=== PATIENT | female | born 1995 | race African-American/Black ===

== ENCOUNTER → 2017-05-12 15:00 | Observation (INO) ==
--- NOTE | 2017-05-12 11:48 | OB/GYN History & Physical ---
Date of Encounter: 05/12/17 Time of Encounter: 11:25 Assessment and Plan (1) 39 weeks gestation of Current visit: Yes Status: Acute (2) Decreased movement Current visit: Yes Status: Acute Patient had a BPP of 6/8 with decreased gross movement of the fetus earlier today in clinic. Patient reports good movement. tracing baseline 125/moderate variability/+accels, -decels. discussed with Dr. Werner. Discharge to home with labor and when to return to triage precautions. F/U appointment arranged for PN and NST on Tuesday at 0900. Qualifiers: Fetus number: single or unspecified fetus Trimester: third trimester Qualified Code(s): O36.8130 - Decreased movements, third trimester, not applicable or unspecified (3) Large for gestational age fetus affecting mother, antepartum, third trimester, single gestation Current visit: Yes Status: Acute Discussed with patient US showing LGA fetus >90 percentile. Discussed risks of post term gestation with gestational diabetes and risks of shoulder dystocia and injury at delivery. Pt states understanding, but still wants to continue and natural onset of labor. (4) Gestational diabetes mellitus (GDM) affecting first Current visit: Yes Status: Acute Blood sugar log reviewed. History of Present Illness Chief complaint: Decreased gross movement of u/s HPI: Ms. Richmond is a 22 year old female at 39 6/7 weeks gestation that presents for decreased gross movement of fetus seen on u/s earlier today in clinic.She states baby was moving adequately prior to appointment, but not during appointment. Her BPP was 6/8. She denies vaginal fluid leakage or bleeding. She denies contractions, headaches, vision changes, chest pain, fever, chills, nausea, vomiting, dysuria, or diarrhea. GBS: negative HepBSAb: non-reactive (11/05/16) HIV Ag/Ab: non-reactive T. Pallidum: negative Rubella Ab: positive Varicella Ab: positive Blood Type: A+ All other labs normal. Past Med Surg Social Fam HX - Past Medical History Psychiatric history: no psych history - Past Surgical History Surgical History: no surgical history - Social History Smoking Status: Former smoker Smokeless Tobacco Status: No Alcohol use: none Drug use: marijuana - Family History Mother Name: Caitlyn Living Status: Still Living Hx Family Cardiac Disorders: No Hx Family Respiratory Disorders: No Hx Family Cancer: No Hx Family GI Disorders: No Hx Family Genitourinary Disorders: No Hx Family Endocrine Disorder: No Hx Family Musculoskeletal Disorders: No Hx Family Neuromuscular Disorders: No Hx Family Neurologic Disorders: No Hx Family HEENT Disorders: No Hx Family Autoimmune Disorders: No Hx Family Reproductive Disorders: No Hx Family Psychosocial Disorders: Yes (mood disrorders) Hx Family Medical Disorders: No Obstetrical History - Pregnancies : 1 Para: 0 Term: 0 : 0 Ab's: 0 Livin Medications and Allergies Formula Tablet 05/12/17 [History] 3 Allergy/AdvReac Type Severity Reaction Status Date / Time penicillin V Allergy Itching Verified 05/12/17 11:23 Exam - Vital Signs Vital signs: BP: 131/83 HR: 81 FHR: 129 Amesti: 11 - Constitutional Constitutional: well developed, well nourished, no acute distress, average body habitus - Neck Neck exam: full ROM - Lungs Respiratory exam: CTAB - Cardiovascular Cardiovascular exam: RRR, +S1, +S2 - Abdomen Abdomen: Present: bowel sounds normal, gravid, non tender - Extremities Extremities exam: full ROM, normal inspection, radial pulses palpable and symmetrical Deep Tendon Reflex Grade: 2+ Normal - Vagina Vagina: Present: normal moisture - Cervix Dilation: 4 Effacement: 80 Station: -2 - Uterus Uterus exam: Present: normal size, normal contour Results All other labs normal. - VTE Reasons for not Prescribing Prophylaxis: Treatment not Indicated - Low risk for VTE
[2017-05-12 14:02] LABS: Amphetamine Screen,Urine Negative ng/mL (Cutoff=1000); Barbiturate Screen,Urine Negative ng/mL (Cutoff=200); Benzodiazepines Screen,Urine Negative ng/mL (Cutoff=200); Cannabinoid Screen,Urine Negative ng/mL (Cutoff = 50); Cocaine Screen,Urine Negative ng/mL (Cutoff= 300); Opiate Screen,Urine Negative ng/mL (Cutoff=300); Phencyclidine Screen,Urine Negative ng/mL (Cutoff=25)
== END | disposition home or self-care (01) ==
LOC: 1NENULAB
PROVIDERS: ADMIT Obstetrics & Gynecology; ATTEND Obstetrics & Gynecology

== ENCOUNTER 2017-05-13 18:48 | Inpatient (IN) ==
--- NOTE | 2017-05-13 16:47 | OB/GYN History & Physical ---
Date of Encounter: 05/13/17 Time of Encounter: 16:45 Assessment and Plan (1) 40 weeks gestation of Current visit: Yes Status: Acute Admit for labor evaluation (2) Gestational diabetes mellitus (GDM) affecting first Current visit: Yes Status: Acute Diet-controlled. Check blood sugars fasting and 2 hr postprandial. (3) Non-stress test reactive Current visit: Yes Status: Acute FHR 135 bpm, moderate variability, +15x15 aceels. History of Present Illness Chief complaint: Possible SROM HPI: Ms. Richmond is a 22 year old female at 40w0d who arrives with complaints of possible SROM. Patient states she felt a "pop" and leaked fluid. She states she lost her mucous plug while sitting on the toilet afterward. Pt reports positive movement, denies bleeding, reports irregular cramping. Nitrazine negative , pt states she is no longer feeling fluid leakage. A positive GBS negative Rubella Immune Varicella Immune HbSAG negative T. Pallidum negative Past Med Surg Social Fam HX - Past Medical History Source: patient Medical history: diabetes (Gestational, diet-controlled) Psychiatric history: no psych history - Past Surgical History Surgical History: no surgical history - Social History Smoking Status: Former smoker Smokeless Tobacco Status: No Alcohol use: none Drug use: marijuana Current living situation: Home - Independent Activity Level: Independent ambulation Recent Out of Country Travel Within the Last 8 Weeks: No Exposure or Possible Exposure to Illness During Travel: No - Family History Mother Living Status: Still Living Hx Family Cardiac Disorders: No Hx Family Respiratory Disorders: No Hx Family Cancer: No Hx Family GI Disorders: No Hx Family Endocrine Disorder: No Hx Family Neuromuscular Disorders: No Hx Family Neurologic Disorders: No Hx Family HEENT Disorders: No Hx Family Autoimmune Disorders: No Obstetrical History - Pregnancies : 1 Para: 0 Term: 0 : 0 Ab's: 0 Livin Medications and Allergies Formula Tablet 05/12/17 [History] 3 Allergy/AdvReac Type Severity Reaction Status Date / Time penicillin V Allergy Itching Verified 05/12/17 11:23 Review of System OB All systems PM: reviewed and no additional remarkable complaints except as stated - Constitutional Constitutional ROS IM: as per HPI - Nose, mouth, and throat Nose, mouth and throat: as per HPI - Breasts Breasts: as per HPI - Cardiovascular Cardiovascular: as per HPI - Respiratory Respiratory: as per HPI - Gastrointestinal Gastrointestinal: as per HPI - Genitourinary Genitourinary: as per HPI - Menstruation Menstruation: as per HPI - Muscloskeletal Musculoskeletal: as per HPI - Integumentary Integumentary: as per HPI - Neurological Nerological: as per HPI Exam - Constitutional Constitutional: well developed, well nourished, no acute distress - Neck Neck exam: full ROM, normal inspection - Lungs Respiratory exam: CTAB - Cardiovascular Cardiovascular exam: RRR, +S1, +S2 - Abdomen Abdomen: Present: bowel sounds normal, gravid, non tender - Extremities Extremities exam: full ROM, normal capillary refill, normal inspection - Cervix Dilation: 4 (per RN) Effacement: 80 Station: -1 - Uterus Uterus exam: Present: normal size - Comments Comments: FHR 135 bpm, moderate variability, + 15x15 accels. Non-recurrent late decelerations. Position change resolved these. Irregular contractions. Results All other labs normal. - VTE Reasons for not Prescribing Prophylaxis: Treatment not Indicated - Low risk for VTE
[2017-05-13 18:23] LABS: Basophils % 0.3 %; Eosinophils % 0.4 %; Hematocrit 38.9 % (35.3-44.9); Hemoglobin 12.4 g/dL (11.5-15.4); Immature Granulocytes % 0.6 % (0-4); Lymphocytes # 1.8 K/mcL (0.6-4.6); Lymphocytes % 25.1 %; Mean Corpuscular HGB Conc 31.9 g/dL (31.6-35.5); Mean Corpuscular Hemoglobin 24.1 pg (28.0-33.3); Mean Corpuscular Volume 75.5 fL (83.0-100.0); Mean Platelet Volume 9.7 fL (9.4-12.4); Monocytes # 0.5 K/mcL (0.0-1.3); Monocytes % 7.3 %; Neutrophils # 4.6 K/mcL (1.6-8.9); Platelet Count 222 K/mcL (140-400); Red Blood Count 5.15 M/mcL (3.82-4.97); Red Cell Distribution Width 15.1 % (11.5-14.5); Segmented Neutrophils % 66.3 %
[~2017-05-13 18:48] MED LIST: Famotidine 20 MG/2 ML VIAL IVP PRN; Naloxone 0.4 MG/ML INJ IVP PRN; Ondansetron 4 MG/2 ML VIAL IVP PRN; Ringers Solution, Lactated 1,000 ML IVC SCH
--- NOTE | 2017-05-13 20:11 | OB Labor Progress Note ---
Date of Encounter: 05/13/17 Time of Encounter: 20:03 Labor Progress Note - Subjective Subjective: Pt working well with contractions. Pt aware she can have Nubain or epidural if she requests it. Family members at bedside for support. - Cervix Cervix: 4-5/80/-1 - Heart Tones Heart Tones: 135 bpm moderate variability, + 15x15 accels, no decels. Category I tracing. - [place]: every 3 min - Interventions Interventions: SVE, planned to AROM, no membranes felt, hair palpated. Suspect SROM at 1300 by patient report. - Plan Plan: Continue labor management. Recheck in approximately 1 hour. Will re-evaluate plan of care at that time. Pt prefers natural labor.
[2017-05-13] MEDS ORDERED: miSOPROStol 100 MCG TABLET PO STA (21:40)
--- NOTE | 2017-05-13 21:46 | OB Labor Progress Note ---
Date of Encounter: 05/13/17 Time of Encounter: 21:43 Labor Progress Note - Subjective Subjective: Pt coping well with contractions, breathing with them. Significant other at side for labor support. - Cervix Cervix: 5/80/-1 - Heart Tones Heart Tones: FHR 130 bpm, moderate variability, + 15x15 accels, variable deceleration x 1. - [place]: q 3 minutes - Interventions Interventions: SVE, no significant change noted - Plan Plan: Discussed augmentation with Cytotec and patient is agreeable. Will give Cytotec 50 mcg po. Continue labor management
[2017-05-13] MEDS ORDERED: Epidural Premix (fent/bupiv) 110 ML EP SCH (23:45)
[2017-05-13] MEDS ORDERED: *HR* Ropivacaine/PF 0.2% 10 ML AMPUL EP ONE (23:47)
[2017-05-13] MEDS ORDERED: EPHEDrine 50 MG/ML VIAL IVP PRN (23:47)
[2017-05-13] MEDS ORDERED: Ringers Solution, Lactated 500 ML IVC ONE (23:47)
[2017-05-14] MEDS ORDERED: Epidural Premix (fent/bupiv) 110 ML EP ONE
--- NOTE | 2017-05-14 | Anesthesia Evaluation PreOp ---
Date of Encounter: 05/13/17 Time of Encounter: 23:55 - Past History Planned Operation: JOSHUA Cardiac History: Denies any Significant Hx Pulmonary History: Denies Any Significant HX, Former smoker MOUNTER CLARINETS History: Denies Any Significant HX Other Medical History: Denies Any Significant HX : Yes Alcohol Use: none Drug use: marijuana Medications and Allergies Formula Tablet 05/12/17 [History] 3 Allergy/AdvReac Type Severity Reaction Status Date / Time penicillin V Allergy Itching Verified 05/12/17 11:23 - Meds/Allergy Pre-op Review Medications Reviewed: Yes Allergies Reviewed: Yes Beta Blockers on Current Med List: No Anesthesia Results - Labs 05/13/17 18:10 Anesthesia Exam Height: 1.83m Weight: 115.6kg NPO (# of Hours): >6hr Pain Scale: 8 Pain Scale Used: Numeric (1 - 10) - HEENT Pupil (Motor): Pupils equal Mallampati: II Teeth: Normal Oral Opening: Greater than 3 - MOUNTER CLARINETS LOC: Oriented [place] Motor: Normal RUE, Normal LUE, Normal RLE, Normal LLE, Normal Face [place] Sensory: Normal: RUE, LUE, RLE, LLE, Face - Cardiac Rhythm: Regular Murmur: None JVD: No Carotid Bruit: No - Pulmonary Breath Sounds: bilateral Clear Respiratory Effort: Symmetrical Anesthesia Assess/Plan ASA Score: 2 Modified Cromwell Scale for Level of Consciousness: Cooperative, oriented, and tranquil Anesthetic Plan: Regional Autologous Blood: Yes Monitoring Plan: Standard Monitors Recovery Plan: Other
--- NOTE | 2017-05-14 01:12 | Anesthesia Procedures ---
Date of Encounter: 05/14/17 Time of Encounter: 00:03 Procedures: Anesthesia - Epidural/Spinal Patient ID/Chart reviewed: Yes Patient examined: Yes OB Eval: Gestational age: 40 OB Eval: : 1 OB Eval: Hx Para: 0 OB Eval: Dilated at (cm): 6 OB Eval: Contractions: Non-stressed pattern Consent Obtained: Yes Supplemental Oxygen: None/Room Air Site Prep: Aseptic Technique, Sterile prep and drape, 0.5% Chlorhexidine/Alcohol Patient position: upright Local Anesthetic: Lidocaine 1% Amount of Local Anesthetic used: 6 Touhy Needle Gauge: 18 Touhy Needle Depth (cm): 9 Catheter Depth at Skin (cm): 15 Test Dose (1.5% Lido + Epi): Volume given (mls): 5 Test Dose Result: Negative Loading Dose: Other: Ropivacaine 0.5% 10mL Loading Dose Administered: Thru Catheter Infusion Med: 0.125% Bupivacaine w/ 2 mcg/ml Fentanyl Infusion Rate (mls/hr): 18 (bolus 4mL q20min) Catheter Secured in Place: Tegaderm Interspace Used: L2-L3 Loss of Resistance (JORDY): Yes Blood: No CSF: No Paresthesia: No Procedure: Catheter placed at L3-4 after JORDY @9cm. Negative test dose and catheter passed easily. Patient reported no change in comfort level after bolus. Monitored for 20 minutes and still no change in comfort level. Catheter removed at 0046 and Catheter placed at L2-3 as charted. Patient with increased comfort level within 2 contractions of bolus with new catheter. Will continue monitoring. Patient tolerated procedure well. Vitals + FHT's: VSS and FHR stable throughout. See nursing documentation.
[2017-05-14] MEDS ORDERED: EPHEDrine 50 MG/ML VIAL ONE (01:14)
[2017-05-14] MEDS ORDERED: Oxytocin 20 units/ LR 1000 mL 20 UNIT/1,000 ML BAG IVC ONE ×2 (03:49→08:38)
--- NOTE | 2017-05-14 07:18 | OB/GYN Procedure Note ---
Delivery - Delivery Date: 05/14/17 Provider: Kerry Ralph ([facility]) Intrapartum events: none Delivery induction: none Delivery monitor: external FHT, external uterine Anesthesia: epidural Estimated Blood Loss: 450 - Infant (s) A Infant Delivery Date: 05/14/17 Delivery Time: 06:44 Presentation: vertex Position: OA Route of delivery: Gender: Female Viability: Viable Pounds: 8 Ounces: 9 Weight Gram: 3870 kg at 1 minute: 8 at 5 mins: 9 Shoulder Dystocia: not encountered Placenta: spontaneous Cord: nuchal cord, nuchal reduced - Repair Episiotomy: none Laceration Description: Vaginal (Right side vaginal wall lac, repaired with 3-0 Vicryl) - Complications Delivery complications: uterine atony (Methergine given IM) Delivery comments: Under maternal effort, spontaneous delivery of viable female 3870 gm infant over right vaginal wall laceration, repaired with 3-0 Vicryl. Nuchal cord x 1, easily reduced. [place] to maternal abdomen, cord clamped and cut after pulsation ceased. Spontaneous delivery of intact placenta. Uterine atony noted after placenta delivered, IV Pitocin running wide open and uterine massage performed with continued atony. Methergine IM ordered and given. After several minutes, uterus firm and bleeding moderate. No shoulder dystocia or meconium encountered. EBL 450 mL. All counts complete and correct. Mother and infant stable for 2 hour recovery. - Disposition Mom disposition: stable in LDR [place] disposition: stable in LDR
[2017-05-14] MEDS ORDERED: Oxytocin 20 units/ LR 1000 mL 20 UNIT/1,000 ML BAG IVC SCH (09:53)
[2017-05-14] MEDS ORDERED: Lanolin 7 G OINT...G. TP PRN (09:53)
[2017-05-14] MEDS ORDERED: Prenatal Vit/FA 1 EACH TABLET PO SCH (09:53)
[2017-05-14] MEDS ORDERED: Measles/Mumps/Rubella Vacc 0.5 ML VIAL SQ PRN (09:53)
[2017-05-14] MEDS ORDERED: Acetaminophen 325 MG TABLET PO PRN (09:53)
[2017-05-14] MEDS ORDERED: Benzocaine/Menthol 56 GM AEROSOL SPRAY TP PRN (09:53)
[2017-05-14] MEDS ORDERED: *HR* HYDROcodone/Acet 5/325 mg TABLET PO PRN (09:53)
[2017-05-14] MEDS: Ibuprofen 600 MG TABLET PO PRN ×2 (10:04→20:05)
[2017-05-15] MEDS: Ibuprofen 600 MG TABLET PO PRN (03:06)
--- NOTE | 2017-05-15 07:17 | Discharge Summary ---
Date of Encounter: 05/15/17 Time of Encounter: 07:14 - Discharge Diagnosis (1) Vaginal delivery Priority: Primary Status: Acute Comments: S/P vaginal delivery day 1 Pain is well controlled Lochia is light and without clots VSS - mild blood pressure elevation yesterday - asymptomatic Voiding without difficulty Discharge home today (2) Mother currently breast-feeding Priority: Primary Status: Acute Comments: mother Having mild difficulty with latch; encouraged to have see patient prior to discharge Discharge home with breast pump - Discharge Medications Prescriptions: Ibuprofen [Motrin] 600 mg PO Q6HR PRN #60 tablet PRN Reason: Cramping Breast Pump [BREAST PUMP] 1 each .ROUTE AD #1 each Ferrous Sulfate 325 mg PO DAILY #30 tablet Home Medications: Formula Tablet 05/12/17 [History] Acetaminophen [Tylenol] 650 mg PO Q6HR PRN tablet 05/15/17 [Rx] Benzocaine/Menthol [place] [Dermoplast [place]] 1 appl TP QID PRN aerosol 05/15/17 [Rx] Breast Pump [BREAST PUMP] 1 each .ROUTE AD #1 each 05/15/17 [Rx] Docusate [Colace] 100 mg PO BID capsule 05/15/17 [Rx] Ferrous Sulfate 325 mg PO DAILY #30 tablet 05/15/17 [Rx] Ibuprofen [Motrin] 600 mg PO Q6HR PRN #60 tablet 05/15/17 [Rx] Lanolin [Lansinoh] 1 appl TP TID PRN oint...g. 05/15/17 [Rx] Allergies/Adverse Reactions: 3 Allergy/AdvReac Type Severity Reaction Status Date / Time penicillin V Allergy Itching Verified 05/12/17 11:23 Data Procedures and tests throughout hospitalization: Laboratory Tests 05/13/17 18:10 WBC 7.0 RBC 5.15 H Hgb 12.4 Hct 38.9 MCV 75.5 L MCH 24.1 L MCHC 31.9 RDW 15.1 H Plt Count 222 MPV 9.7 Immature Gran % 0.6 Seg Neutrophils % 66.3 Lymphocytes % 25.1 Monocytes % 7.3 Eosinophils % 0.4 Basophils % 0.3 Neutrophils # 4.6 Lymphocytes # 1.8 Monocytes # 0.5 Eosinophils # 0.0 Basophils # 0.0 Date of admission: 05/13/17 18:48 Primary care physician: PCP NONE Consults: 05/14/17 09:53 Consult to Senior Communications Engineer [CONS] Routine Comment: Vaginal delivery, consult needed Discharging clinician: Eugenie Tapia Anticipated date of discharge: 05/15/17 - Patient Status Disposition: Home, Self-Care Condition: Good Functional capacity at discharge: independent ambulation Overall status at discharge: patient is back to baseline - Discharge Instructions Follow Up With: NONE,PCP [Primary Care Provider] - Kerry Ralph CNM [Non-Partnered Physician] - - Diet and Activity Activity: increase activity as tolerated Diet: regular diet Hospital Course Reason for admission: induction of labor, IUP at term Delivery: Episiotomy: none Laceration: vaginal side wall Other procedures: none complications: none Discharge diagnosis: IUP at term delivered baby: female Time Attestation: Total time spent providing and/or coordinating discharge services: Time Spent: Less than 30 minutes Exam - Constitutional Vitals: Temp Pulse Resp BP Pulse Ox 98.0 F 82 14 115/76 99 05/15/17 03:00 05/15/17 03:00 05/15/17 03:00 05/15/17 03:00 05/15/17 03:00 General appearance IM: cooperative, A&O X 3, pleasant - Respiratory Respiratory exam: Present: CTAB - Cardiovascular Cardiovascular exam IM: Present: RRR, +S1, +S2 - GI/Abdominal GI/Abdominal exam IM: normal bowel sounds, soft - Rectal Rectal exam: deferred - Uterine Tone: Firm Uterus Position: At Umbilicus, Midline - Extremities Exam Extremities exam IM: Present: normal capillary refill, normal inspection, radial pulses palpable and symmetrical - Neurological Exam Neurological exam: alert, oriented X3
[2017-05-15 07:41] LABS: Basophils % 0.3 %; Eosinophils # 0.1 K/mcL (0.0-0.6); Hematocrit 29.8 % (35.3-44.9); Immature Granulocytes % 0.5 % (0-4); Lymphocytes # 2.3 K/mcL (0.6-4.6); Mean Corpuscular HGB Conc 31.5 g/dL (31.6-35.5); Mean Corpuscular Hemoglobin 23.7 pg (28.0-33.3); Mean Corpuscular Volume 75.3 fL (83.0-100.0); Mean Platelet Volume 10.6 fL (9.4-12.4); Monocytes # 0.8 K/mcL (0.0-1.3); Monocytes % 8.2 %; Neutrophils # 6.1 K/mcL (1.6-8.9); Platelet Count 198 K/mcL (140-400); Red Blood Count 3.96 M/mcL (3.82-4.97); Red Cell Distribution Width 15.3 % (11.5-14.5)
[2017-05-15 07:44] LABS: Hemoglobin 9.4 g/dL (11.5-15.4)
[2017-05-15 08:11] VITALS: BP 116/75
[2017-05-15] MEDS ORDERED: Methylergonovine 0.2 MG/ML AMPUL IM ONE (12:59)
== END 2017-05-15 13:00 | disposition home or self-care (01) | DRG 560 ==
LOC: 1NENULAB → 1NENUOBS 05-14 09:51
PROVIDERS: ADMIT Obstetrics & Gynecology; ATTEND Obstetrics & Gynecology

== ENCOUNTER 2018-08-19 14:21 | Inpatient (IN) ==
--- NOTE | 2018-08-19 14:49 | Emergency Department Note ---
Disposition Clinical Impression: Optic neuritis Disposition: Admitted As Inpatient Condition: Fair Forms: ED Satisfaction Letter Time of Disposition: 17:09 Eye Problem HPI - General Chief complaint: ED Eye Problems Stated complaint: L eye vision problem Time Seen by Provider: 08/19/18 14:29 Source: patient Limitations: no limitations Nursing Notes Reviewed: Yes Vital Signs Reviewed: Yes - History of Present Illness HPI Narrative: Patient is a 23-year-old female presenting with acute left vision loss. Patient states that one and half weeks ago, she started has central vision changes with central loss of vision, no set approximately 5 days ago she then had progressive worsening where she is not able to see her peripheral vision as well, she was seen at that point in time by optometry who referred her to ophthalmology, she notes that she saw the collision repairer this past Tuesday, who diagnosed her with optic neuritis, no further treatment was given. Since this time, she has had complete left eye vision loss. She also reports pain with any eye movement specifically in the left eye with associated headache. No weakness, numbness, tingling or history of similar symptoms in the past. No family history of MS, temporal arteritis or neuromuscular disorder. - Related Data Home Medications Medication Instructions Recorded Confirmed Formula Tablet 05/12/17 Previous Rx's Medication Instructions Recorded Acetaminophen [Tylenol] 650 mg PO Q6HR PRN tablet 05/15/17 Benzocaine/Menthol [place] 1 appl TP QID PRN aerosol 05/15/17 [Dermoplast [place]] Breast Pump [BREAST PUMP] 1 each .ROUTE AD #1 each 05/15/17 Docusate [Colace] 100 mg PO BID capsule 05/15/17 Ferrous Sulfate 325 mg PO DAILY #30 tablet 05/15/17 Ibuprofen [Motrin] 600 mg PO Q6HR PRN #60 tablet 05/15/17 Lanolin [Lansinoh] 1 appl TP TID PRN oint...g. 05/15/17 GuaiFENesin ER [Mucinex] 1,200 mg PO BID #20 tbbp.12hr 07/18/18 Loratadine/Pseudophed (12 HR) 1 each PO BID #20 tab.er.12h 07/18/18 [Claritin D (12HR)] Allergies Allergy/AdvReac Type Severity Reaction Status Date / Time penicillin V Allergy Itching Verified 07/18/18 15:18 All systems ED: reviewed and negative except as stated. Review of Systems: As Per HPI Constitutional: Denies: fever Eyes: Reports: eye pain, vision change ENT ED: Denies: congestion Cardiovascular: Denies: chest pain, edema Respiratory: Denies: cough, sputum production Gastrointestinal: Denies: abdominal pain, nausea, vomiting Genitourinary: Denies: urgency Musculoskeletal: Denies: back pain Integumentary: Denies: rash Neurological: Reports: headache. Denies: weakness, numbness, paresthesias, confusion Past Medical History - Past Medical History Attestation: Yes The following information was validated with the patient. Source: patient Medical history: Reports: no medical history Surgical history: Reports: no surgical history Psychiatric history: Reports: no psych history - Social History Smoking Status: Current every day smoker Smokeless Tobacco Status: No Alcohol use: Reports: occasionally Drug use: Reports: none Physical Exam - General Limitations: no limitations General appearance: alert, in no apparent distress - Head Head exam: atraumatic, normocephalic, normal inspection - Eye Eye exam: Present: normal appearance, EOMI, other (afferent pupillary defect in the left eye, with minimal constriction in the right eye. ) - ENT ENT exam: normal exam, normal oropharynx, mucous membranes moist - Neck Neck exam: Present: normal inspection, full ROM, trachea midline - Chest Chest inspection: Present: normal inspection, symmetric chest wall rise - Respiratory Respiratory exam: Present: normal lung sounds bilaterally - Cardiovascular Cardiovascular exam: Present: regular rate, normal rhythm, normal heart sounds - Abdominal Exam Abdominal exam: Present: soft, Non-Tender. Absent: tenderness, distention, guarding, rebound, rigidity - Extremities Exam Extremities exam: Present: normal inspection, full ROM. Absent: tenderness, pedal edema - Back Exam Back exam: Present: normal inspection - Neurological Exam Neurological exam: Present: alert - Psychiatric Psychiatric exam: Present: normal affect, normal mood - Skin Skin exam: Present: warm, dry, intact, normal color. Absent: rash Course Vital Signs Temperature 98.0 F 08/19/18 14:23 Pulse Rate 84 08/19/18 14:23 Respiratory Rate 16 08/19/18 14:23 Blood Pressure 161/104 08/19/18 14:23 O2 Sat by Pulse Oximetry 100 08/19/18 14:23 Temperature 98.0 F 08/19/18 14:23 Pulse Rate 84 08/19/18 14:23 Respiratory Rate 16 08/19/18 14:23 Blood Pressure 161/104 08/19/18 14:23 O2 Sat by Pulse Oximetry 100 08/19/18 14:23 Oxygen Delivery Oxygen Delivery Room Air Eye - MDM Narrative Medical decision making narrative: Patient is a 23-year-old female presenting with acute vision loss in the left eye. Progressive over the past 10 days. No neurological signs or symptoms besides vision loss in the left eye. Otherwise in no acute distress. Bedside ultrasound was performed which shows no acute retinal attachment, patient did have extraocular motor pain with movement. I did speak with Dr. Rowe regarding the MRI which showed change in attenuation in the frontal lobes, as well as suggestive of papilledema. With these readings as well as symptoms, concern for multiple sclerosis. Dr. Rowe requested the patient be admitted and started on IV Solu-Medrol 500 mg twice per day for the next 3 days. I did discuss these findings with the patient, she agrees admission at this point in time. Her first dose of steroid has been given in the ER. Patient remained stable in the ER. Will be admitted. - Medical Records Medical records reviewed: Yes I reviewed the patient's medical records. - Lab Data Lab results reviewed: Yes I reviewed the patient's lab results. Result diagrams: 08/19/18 15:12 Lab Results 08/19/18 Range/Units 15:12 Sodium 137 (136-145) mEq/L Potassium 3.8 (3.5-5.1) mEq/L Chloride 105 (98-107) mEq/L Carbon Dioxide 27 (23-29) mEq/L BUN 12 (6-20) mg/dL Creatinine 0.94 (0.60-1.20) mg/dL Est GFR ( Amer) > 60 (> 60) Est GFR (Non-Af Amer) > 60 (> 60) BUN/Creatinine Ratio 13 (6-26) Glucose 84 (70-105) mg/dL Calculated Osmolality 283 (280-300) Calcium 9.1 (8.6-10.3) mg/dL - Radiology Data Radiology results reviewed: Yes I reviewed the patient's radiology results. Brain MRI 08/19/18 14:43 IMPRESSION: Minimal nonspecific white matter signal changes in both frontal lobes. Suggestion of left-sided papilledema. Recommend ophthalmologic exam. Dedicated MRI of the orbits could also be obtained for further evaluation D/ / Neri Farris MD / Neri Farris MD Interpreting Provider: Neri Farris MD Raffi - Raffi Situation: Demographics, MOA Background: Presenting Complaint, Relevant PMH, Meds, & Allergies Assessment: Vital Signs, Course and respsone to treatment, Exam Concerns, Patient/Family Expectation, Pertinant Lab Results, Outstanding Labs Recommendation: Barrier(s) to disposition, Recommendation based on pending studies, treatments, or consults Raffi Report Given to: Dr. Jerrod Nugent Repor Time: 17:09 (accepted)
--- NOTE | 2018-08-19 14:51 | Emergency Department Note ---
Disposition Clinical Impression: Optic neuritis Disposition: Admitted As Inpatient Condition: Fair Referrals: NONE,PCP [Primary Care Provider] - Forms: ED Satisfaction Letter General Adult HPI - General Chief complaint: ED Eye Problems Stated complaint: L eye vision problem Time Seen by Provider: 08/19/18 14:29 Source: patient Limitations: no limitations - History of Present Illness Pain Scale: 6 - Related Data Home Medications Medication Instructions Recorded Confirmed Formula Tablet 05/12/17 Previous Rx's Medication Instructions Recorded Acetaminophen [Tylenol] 650 mg PO Q6HR PRN tablet 05/15/17 Benzocaine/Menthol [place] 1 appl TP QID PRN aerosol 05/15/17 [Dermoplast [place]] Breast Pump [BREAST PUMP] 1 each .ROUTE AD #1 each 05/15/17 Docusate [Colace] 100 mg PO BID capsule 05/15/17 Ferrous Sulfate 325 mg PO DAILY #30 tablet 05/15/17 Ibuprofen [Motrin] 600 mg PO Q6HR PRN #60 tablet 05/15/17 Lanolin [Lansinoh] 1 appl TP TID PRN oint...g. 05/15/17 GuaiFENesin ER [Mucinex] 1,200 mg PO BID #20 tbbp.12hr 07/18/18 Loratadine/Pseudophed (12 HR) 1 each PO BID #20 tab.er.12h 07/18/18 [Claritin D (12HR)] Allergies Allergy/AdvReac Type Severity Reaction Status Date / Time penicillin V Allergy Itching Verified 07/18/18 15:18 Past Medical History - Past Medical History Medical history: Reports: no medical history Surgical history: Reports: no surgical history Psychiatric history: Reports: no psych history - Social History Smoking Status: Current every day smoker Smokeless Tobacco Status: No Alcohol use: Reports: occasionally Drug use: Reports: none Physical Exam - General Limitations: no limitations General appearance: alert, in no apparent distress Course Vital Signs Temperature 98.0 F 08/19/18 14:23 Pulse Rate 84 08/19/18 14:23 Respiratory Rate 16 08/19/18 14:23 Blood Pressure 161/104 08/19/18 14:23 O2 Sat by Pulse Oximetry 100 08/19/18 14:23 Temperature 98.0 F 08/19/18 14:23 Pulse Rate 84 08/19/18 14:23 Respiratory Rate 16 08/19/18 14:23 Blood Pressure 161/104 08/19/18 14:23 O2 Sat by Pulse Oximetry 100 08/19/18 14:23 Oxygen Delivery Oxygen Delivery Room Air Medical Decision Making - Lab Data Result diagrams: 08/19/18 15:12 Lab Results 08/19/18 Range/Units 15:12 Sodium 137 (136-145) mEq/L Potassium 3.8 (3.5-5.1) mEq/L Chloride 105 (98-107) mEq/L Carbon Dioxide 27 (23-29) mEq/L BUN 12 (6-20) mg/dL Creatinine 0.94 (0.60-1.20) mg/dL Est GFR ( Amer) > 60 (> 60) Est GFR (Non-Af Amer) > 60 (> 60) BUN/Creatinine Ratio 13 (6-26) Glucose 84 (70-105) mg/dL Calculated Osmolality 283 (280-300) Calcium 9.1 (8.6-10.3) mg/dL Attestation Statement - Attestation Attestation: I examined this patient and my medical decision-making was reviewed with the Resident Physician. I agree with the documented findings, disposition and treatment plan as described except to the extent set forth below. Patient presents to the emergency department with a chief complaint of left eye vision loss. Onset 8 days ago. Started as loss in her central vision of her left eye and is progressed to the entire eye. She is seen an tile molder in an food and beverage coordinator. They have told her it optic neuritis. Patient is concerned is not getting any better. She is not on any medications. Patient is in no acute distress on examination. Bedside ultrasound was performed by Dr. Mccann with my supervision. No signs of retinal detachment. Plan. MR brain. MRI reviewed. Patient is been discussed with Dr. Rowe is recommending high- dose steroids with 500 mg of Solu-Medrol IV twice a day. First dose given here. I discussed the patient with Dr. Elder who accepts for admission. Brain MRI 08/19/18 14:43 IMPRESSION: Minimal nonspecific white matter signal changes in both frontal lobes. Suggestion of left-sided papilledema. Recommend ophthalmologic exam. Dedicated MRI of the orbits could also be obtained for further evaluation D/ / Neri Farris MD / Neri Farris MD Interpreting Provider: Neri Farris MD
[2018-08-19 15:39] LABS: BUN/Creatinine Ratio 13 (6-26); Blood Urea Nitrogen 12 mg/dL (6-20); Calcium 9.1 mg/dL (8.6-10.3); Carbon Dioxide 27 mEq/L (23-29); Chloride 105 mEq/L (98-107); Glucose 84 mg/dL (70-105); Osmolality,Calculated 283 (280-300); Potassium 3.8 mEq/L (3.5-5.1); Sodium 137 mEq/L (136-145); eGFR For Non-African Americans > 60 (> 60)
[2018-08-19] MEDS ORDERED: methylPREDNISolone 125 MG/2 ML VIAL IVP ONE (16:38)
--- NOTE | 2018-08-19 17:24 | Internal Med History&Physical ---
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 She started having loss of central vision in her left eye (donahue curtain) 8 days ago, which progressively worsened and ultimately involved whole of left eye to the extent that she no longer has even light perception. She was seen by optometry or opthalmology and further work up was pending insurance approval when her sympotm worsened to th epoint that she presented to ER. Associated with headaches for 2 weeks. Tension type left eye pain with moving neck and occasional flashers. personal or family No family history of MS, temporal arteritis or neuromuscular disorder. A 10-point ROS is otherwise negative for dizziness, vertigo, flu like symptoms, recent illness, recent travel, fevers, rigors, chills, cough, sputum, n, v, abd pain, d, c, focal motor deficits, gait difficulty, dysarthria or other symptoms. PMH: Gestational diabetes PSH: None SH: Less than 0.5 PPD for 7 years. Rare alcohol use. 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 Mother (HTN). Grandfather (stroke) Meds: OCP. No herbal supplements. A/P # Total left vision loss # Optic neuritis ? multiple sclerosis, new diagnosis - MRI brain: Minimal nonspecific white matter signal changes in both frontal lobes. Suggestion of left-sided papilledema. Recommend ophthalmologic exam. Dedicated MRI of the orbits could also be obtained for further evaluation - ER bedside ultrasound: no acute retinal attachment, patient did have extraocul ar motor pain with movement. - ER contacted Dr. Rowe / neurology: concern for multiple sclerosis. IV Solu- Medrol 500 mg twice per day for the next 3 days. Past Med Surg Social Fam HX - Past Medical History Medical history: no medical history Additional medical history: gestational diabetes Psychiatric history: no psych history - Past Surgical History Surgical History: no surgical history - Social History Smoking Status: Current every day smoker Smokeless Tobacco Status: No Alcohol use: occasionally Drug use: none - Family History Mother Living Status: Still Living Hx Family Cardiac Disorders: No Hx Family Respiratory Disorders: No Hx Family Cancer: No Hx Family GI Disorders: No Hx Family Endocrine Disorder: No Hx Family Neuromuscular Disorders: No Hx Family Neurologic Disorders: No Hx Family HEENT Disorders: No Hx Family Autoimmune Disorders: No Internal Medicine - H&P: Meds Formula Tablet 05/12/17 [History] Acetaminophen [Tylenol] 650 mg PO Q6HR PRN tablet 05/15/17 [Rx] Benzocaine/Menthol [place] [Dermoplast [place]] 1 appl TP QID PRN aerosol 05/15/17 [Rx] Breast Pump [BREAST PUMP] 1 each .ROUTE AD #1 each 05/15/17 [Rx] Docusate [Colace] 100 mg PO BID capsule 05/15/17 [Rx] Ferrous Sulfate 325 mg PO DAILY #30 tablet 05/15/17 [Rx] Ibuprofen [Motrin] 600 mg PO Q6HR PRN #60 tablet 05/15/17 [Rx] Lanolin [Lansinoh] 1 appl TP TID PRN oint...g. 05/15/17 [Rx] GuaiFENesin ER [Mucinex] 1,200 mg PO BID #20 tbbp.12hr 07/18/18 [Rx] Loratadine/Pseudophed (12 HR) [Claritin D (12HR)] 1 each PO BID #20 tab.er.12h 07/18/18 [Rx] Allergy/AdvReac Type Severity Reaction Status Date / Time penicillin V Allergy Itching Verified 07/18/18 15:18 All Systems PM: A 10-system review of systems was performed and is negative for pertinent findings except as documented above in the HPI. - Constitutional Vitals: Temp Pulse Resp BP Pulse Ox 98.0 F 84 16 161/104 100 08/19/18 14:23 08/19/18 14:23 08/19/18 14:23 08/19/18 14:23 08/19/18 14:23 General appearance: Present: A&O X 3, pleasant, no acute distress Exam: . - Head Head exam: Present: atraumatic, normal inspection - Eye Eye exam: Present: EOMI. Absent: conjunctival injection, periorbital swelling, scleral icterus Additional comments: total loss of visual acuity left eye - ENT ENT exam: Present: mucous membranes moist, normal exam - Neck Neck exam general surgery: Present: supple. Absent: nuchal rigidity - Respiratory Respiratory exam: Present: CTAB. Absent: accessory muscle use, prolonged expiratory phase, rales, rhonchi, wheezes - Cardiovascular Cardiovascular exam: Present: RRR, +S1, +S2. Absent: gallop, systolic murmur - GI/Abdominal GI/Abdominal exam: Present: soft. Absent: guarding, rebound, tenderness - Extremities Exam Extremities exam: Present: warm. Absent: pedal edema - Neurological Exam Neurological exam: Present: alert, oriented X3. Absent: no focal deficits (motor), speech deficit - Psychiatric Psychiatric exam: Present: normal affect, normal mood Internal Med - H&P Results - Labs CBC & Chem 7: 08/19/18 15:12 Labs: BMP 08/19/18 15:12 Sodium 137 Potassium 3.8 Chloride 105 Carbon Dioxide 27 BUN 12 Creatinine 0.94 Glucose 84 Calcium 9.1 - Impressions ITS Impressions Brain MRI 08/19/18 14:43 IMPRESSION: Minimal nonspecific white matter signal changes in both frontal lobes. Suggestion of left-sided papilledema. Recommend ophthalmologic exam. Dedicated MRI of the orbits could also be obtained for further evaluation D/ / Neri Farris MD / Neri Farris MD Interpreting Provider: Neri Farris MD - Assessment and plan (1) Optic neuritis Current Visit: Yes Status: Acute - Time Spent With Patient Total time spent is greater than 50% in coordination of care (as documented) at patient's floor/unit and/or counseling patient:
[2018-08-19] MEDS ORDERED: Naloxone 0.4 MG/ML INJ IVP PRN (18:22)
[2018-08-19] MEDS ORDERED: Acetaminophen 325 MG TABLET PO PRN (18:22)
[2018-08-20 04:20] LABS: Basophils % 0.1 %; Hemoglobin 12.6 g/dL (11.5-15.4); Immature Granulocytes % 0.4 % (0-4); Lymphocytes # 0.9 K/mcL (0.6-4.6); Lymphocytes % 11.6 %; Mean Corpuscular HGB Conc 30.7 g/dL (31.6-35.5); Mean Corpuscular Hemoglobin 22.6 pg (28.0-33.3); Mean Corpuscular Volume 73.5 fL (83.0-100.0); Monocytes % 0.4 %; Neutrophils # 7.1 K/mcL (1.6-8.9); Platelet Count 249 K/mcL (140-400); Red Blood Count 5.58 M/mcL (3.82-4.97); Red Cell Distribution Width 15.1 % (11.5-14.5); Segmented Neutrophils % 87.5 %
[2018-08-20 04:39] LABS: Alanine Aminotransferase 7 Units/L (7-52); Albumin 4.1 g/dL (3.5-5.7); Albumin/Globulin Ratio 1.2 (1.1-2.2); Alkaline Phosphatase 69 Units/L (34-104); Aspartate Amino Transferase 10 Units/L (13-39); BUN/Creatinine Ratio 14 (6-26); Bilirubin,Total 0.3 mg/dL (0.3-1.0); Blood Urea Nitrogen 12 mg/dL (6-20); Calcium 9.5 mg/dL (8.6-10.3); Carbon Dioxide 21 mEq/L (23-29); Chloride 105 mEq/L (98-107); Globulin 3.3 g/dL (2.4-3.5); Glucose 196 mg/dL (70-105); Osmolality,Calculated 283 (280-300); Potassium 4.2 mEq/L (3.5-5.1); Sodium 134 mEq/L (136-145); Total Protein 7.4 g/dL (6.4-8.9); eGFR For Non-African Americans > 60 (> 60)
--- NOTE | 2018-08-20 11:34 | Neurology - Consult Note ---
Date of Encounter: 08/20/18 Time of Encounter: 11:29 Assessment and Plan (1) Retrobulbar neuritis of left eye Current Visit: Yes Status: Acute This patient certainly has retrobulbar neuritis on the left. Since the funduscopic examination reveals no evidence of papilledema or atrophy, this will be the more appropriate diagnosis. However beyond semantics, the significance is still the same. I do believe that this patient does have multiple sclerosis. This is particularly true since there is a demyelinating plaque in the corpus callosum which appears to be consistent with a "Ibanez's fingers". Acutely I would recommend that we continue the Solu-Medrol at 1000 mg daily for 3 days. I will also like to obtain an MRI of the cervical spine since she has some weakness of the left upper extremity. Additionally I will obtain an MRI of the thoracic spine. The outcome of the MRIs of the cervical and thoracic spine will help to dictate however choice of treatment for disease modifying therapy. I anticipate following up with her in my office after discharge for ongoing care. I will give her Tylenol No. 3 for the retrobulbar neuritis pain. I do not feel that lumbar puncture is necessary case. History of Present Illness HPI: Ms. Richmond is a very pleasant 23 year old right handed female who is being seen for neurologic evaluation secondary to visual changes in the left eye. She states that the symptoms began about a week or so ago with sudden loss in the central visual field of the left eye. She also experienced some pain along with the visual loss. She was seen and evaluated by her local oyster preparer who sent her to see Dr. Davide Waters a neuro-associate technician in [place]. She was seen by Dr. Waters bowel for days or so ago. Apparently she was given information about optic neuritis, however she states no treatment was offered an MRI scan of the brain was not ordered. She became concerned when the visual changes in the left eye worsened and she was not able to see anything in the left eye other than a blurred patch in the center of her vision. I discussed the case with the ED physician and suggested admission for high-dose steroid therapy. Since the steroid therapy she has experienced some improvement in the vision of the left eye. However it is still not back to baseline. She still experiences some pain in the left retro-orbital region. I did ask whether she had ever experienced any other symptoms in retrospect, such as weakness, paresthesias, balance difficulties, visual changes, difficulty with bladder or bowel, or gait changes. She denied all of these. I did review the MRI scan of the brain which in my opinion does reveal what appears to be a Ibanez finger and the middle third of the corpus callosum eccentric to the left. The radiologist also describes what may be papilledema on the left. Past Med Surg Social Fam HX - Past Medical History Medical history: no medical history Additional medical history: gestational diabetes Psychiatric history: no psych history - Past Surgical History Surgical History: no surgical history Additional surgical history: wisdom teeth - Social History Smoking Status: Current every day smoker Smokeless Tobacco Status: No Alcohol use: occasionally Drug use: none - Family History Mother Living Status: Still Living Hx Family Cardiac Disorders: No Hx Family Respiratory Disorders: No Hx Family Cancer: No Hx Family GI Disorders: No Hx Family Endocrine Disorder: No Hx Family Neuromuscular Disorders: No Hx Family Neurologic Disorders: No Hx Family HEENT Disorders: No Hx Family Autoimmune Disorders: No Medications and Allergies Formula Tablet 05/12/17 [History] Acetaminophen [Tylenol] 650 mg PO Q6HR PRN tablet 05/15/17 [Rx] Benzocaine/Menthol [place] [Dermoplast [place]] 1 appl TP QID PRN aerosol 05/15/17 [Rx] Breast Pump [BREAST PUMP] 1 each .ROUTE AD #1 each 05/15/17 [Rx] Docusate [Colace] 100 mg PO BID capsule 05/15/17 [Rx] Ferrous Sulfate 325 mg PO DAILY #30 tablet 05/15/17 [Rx] Ibuprofen [Motrin] 600 mg PO Q6HR PRN #60 tablet 05/15/17 [Rx] Lanolin [Lansinoh] 1 appl TP TID PRN oint...g. 05/15/17 [Rx] GuaiFENesin ER [Mucinex] 1,200 mg PO BID #20 tbbp.12hr 07/18/18 [Rx] Loratadine/Pseudophed (12 HR) [Claritin D (12HR)] 1 each PO BID #20 tab.er.12h 07/18/18 [Rx] Allergy/AdvReac Type Severity Reaction Status Date / Time penicillin V Allergy Itching Verified 07/18/18 15:18 All Systems: The remainder of the systems were reviewed and are negative Review of Systems: The balance of the systems review is negative. Physical Examination - Vital Signs Vital Signs: Initial Vital Signs Temp Pulse Resp BP Pulse Ox 98.0 F 84 16 161/104 100 08/19/18 14:23 08/19/18 14:23 08/19/18 14:23 08/19/18 14:23 08/19/18 14:23 - Exam Exam: General Examination: *CONSTITUTIONAL: normal *GENERAL APPEARANCE OF PATIENT appears healthy and well groomed *EYES: pupils equal, round, reactive to light and accommodation, conjunctiva clear without masses or ulcerations, fundi normal. *CARDIOVASCULAR no peripheral edema, distal temperature normal, dorsalis pedis pulses normal. Refer to vital signs Musculoskeletal: *GAIT AND STATION normal, with normal Romberg testing, no abnormalities such as broad base gait or spasticity *ASSESSMENT OF MUSCLE STRENGTH IN THE UPPER AND LOWER EXTREMITIES I do find mild weakness of the left upper extremity involving the deltoid, biceps, left triceps all at 4/5. He is also a mild bit of weakness of the left manager clinical. She has giveaway weakness of the right upper extremity due to the IV in the right antecubital fossa. She has normal bulk and tone of both upper extremities. She has normal strength bulk and tone of both lower extremities. *MUSCLE TONE IN THE UPPER AND LOWER EXTREMITIES normal. No abnormal movements, fasciculations or atrophy identified. Neurological: *ORIENTATION to time and place *RECURRENT AND REMOTE MEMORY intact *ATTENTION AND CONCENTRATION are normal *LANGUAGE FUNCTION no significant aphasia or dysarthia was noted. *FUND OF KNOWLEDGE aware of current events, past history, vocabulary *MENTAL attention span and concentration normal. *CN II there is a left afferent pupillary defect, the right pupil responds normally. Funduscopic exam is normal bilaterally. *CN III,IV, PERRLA extraocular eye movements were full, no nystagmus and no ptosis noted. *CN V shows normal sensation and jaw opens symmetrically. *CN VII shows normal facial movement symmetrically, upper and lower bilaterally. *CN VIII shows no significant hearing loss on examination in the office. *CN IX,,X palate elevated symmetrically and normal gag reflex was noted. *CN XI normal strength in the sternocleidomastoid muscles, symmetrical shoulder shrugging. *CN XII tongue protruded in the midline, with normal strength and movement. *SENSORY EXAMINATION pinprick sensation intact, and light touch(vibration sense). *REFLEXES: deep tendon reflexes were normal and symmetrical , grade 2/4 diffusely, no pathological reflexes were noted. *CEREBELLAR TESTING normal finger to nose, heel/knee/quach, and tandem walk. *PAIN LEVEL 5 involving the left orbit. Results - Laboratory Findings CBC and BMP: 08/20/18 03:34 08/20/18 03:34 Abnormal lab findings: Abnormal lab results RBC 5.58 M/mcL (3.82-4.97) H 08/20/18 03:34 MCV 73.5 fL (83.0-100.0) L 08/20/18 03:34 MCH 22.6 pg (28.0-33.3) L 08/20/18 03:34 MCHC 30.7 g/dL (31.6-35.5) L 08/20/18 03:34 RDW 15.1 % (11.5-14.5) H 08/20/18 03:34 Sodium 134 mEq/L (136-145) L 08/20/18 03:34 Carbon Dioxide 21 mEq/L (23-29) L 08/20/18 03:34 Glucose 196 mg/dL (70-105) H 08/20/18 03:34 AST 10 Units/L (13-39) L 08/20/18 03:34 Consult Discharge Plan - Plan Referrals: NONE,PCP [Primary Care Provider] -
[2018-08-20] MEDS ORDERED: *HR* Acetaminophen w/Cod 300-30 mg 1 TAB TABLET PO PRN (11:41)
[2018-08-20] MEDS ORDERED: Gadolinium Contrast Agent (WT Based) IV PRN (11:42)
--- NOTE | 2018-08-20 12:18 | Internal Med Progress Note ---
Hospitalist Progress Note - Encounter Date of Encounter: 08/20/18 Time of Encounter: 13:03 - Subjective Interval History: vision appears to imrove, able to appreciate shadows and shapes and movement mild headache pain in eye with movement of neck no dizziness, n, v, abd pain, d, c, cough, sputum, fevers, chills, rigors - Exam Vitals: Temp Pulse Resp BP Pulse Ox 97.8 F 86 16 135/84 97 08/20/18 11:51 08/20/18 11:51 08/20/18 11:51 08/20/18 11:51 08/20/18 11:51 Exam: - Head Head exam: Present: atraumatic, normal inspection - Eye Eye exam: Present: EOMI. Absent: conjunctival injection, periorbital swelling, scleral icterus Additional comments: impaired visual acuity left eye - ENT ENT exam: Present: mucous membranes moist, normal exam - Neck Neck exam general surgery: Present: supple. Absent: nuchal rigidity - Respiratory Respiratory exam: Present: CTAB. Absent: accessory muscle use, prolonged expiratory phase, rales, rhonchi, wheezes - Cardiovascular Cardiovascular exam: Present: RRR, +S1, +S2. Absent: gallop, systolic murmur - GI/Abdominal GI/Abdominal exam: Present: soft. Absent: guarding, rebound, tenderness - Extremities Exam Extremities exam: Present: warm. Absent: pedal edema - Neurological Exam Neurological exam: Present: alert, oriented X3. 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 She started having loss of central vision in her left eye (donahue curtain) 8 days ago, which progressively worsened and ultimately involved whole of left eye to the extent that she no longer has even light perception. She was seen by optometry or opthalmology and further work up was pending insurance approval when her sympotm worsened to th epoint that she presented to ER. Associated with headaches for 2 weeks. Tension type left eye pain with moving neck and occasional flashers. personal or family No family history of MS, temporal arteritis or neuromuscular disorder. """ # Retrobulbar neuritis of left eye # Suspected multiple sclerosis, new diagnosis - MRI brain: Minimal nonspecific white matter signal changes in both frontal lobes. Suggestion of left-sided papilledema. Recommend ophthalmologic exam. Dedicated MRI of the orbits could also be obtained for further evaluation - ER bedside ultrasound: no acute retinal attachment, patient did have extraocular motor pain with movement. - Neurology Dr. Rowe appreciated: concern for multiple sclerosis. IV Solu-Me drol 500 mg twice per day (total 1000 mg daily) for 3 days. - MRi C/T spine pending # Hx Gestational diabetes - Monitor blood glucose while on high dose steroids, may need SSI - Time Spent with Patient Total time spent is greater than 50% in coordination of care (as documented) at patient's floor/unit and/or counseling patient: Internal Medicine: Result - Labs CBC & Chem 7: 08/20/18 03:34 08/20/18 03:34 Labs: Short CBC 08/20/18 Range/Units 03:34 WBC 8.1 (4.3-11.1) K/mcL Hgb 12.6 (11.5-15.4) g/dL Hct 41.0 (35.3-44.9) % Plt Count 249 (140-400) K/mcL Neutrophils # 7.1 (1.6-8.9) K/mcL BMP 08/19/18 08/20/18 15:12 03:34 Sodium 137 134 L Potassium 3.8 4.2 Chloride 105 105 Carbon Dioxide 27 21 L BUN 12 12 Creatinine 0.94 0.84 Glucose 84 196 H Calcium 9.1 9.5 Liver Function 08/20/18 Range/Units 03:34 Total Bilirubin 0.3 (0.3-1.0) mg/dL AST 10 L (13-39) Units/L ALT 7 (7-52) Units/L Alkaline Phosphatase 69 (34-104) Units/L Albumin 4.1 (3.5-5.7) g/dL - Impressions Impressions Brain MRI 08/19/18 14:43 IMPRESSION: Minimal nonspecific white matter signal changes in both frontal lobes. Suggestion of left-sided papilledema. Recommend ophthalmologic exam. Dedicated MRI of the orbits could also be obtained for further evaluation D/ / Neri Farris MD / Neri Farris MD Interpreting Provider: Neri Farris MD - VTE Reasons for not Prescribing Prophylaxis: Treatment not Indicated - Low risk for VTE Consult Discharge Plan - Plan Referrals: NONE,PCP [Primary Care Provider] -
--- NOTE | 2018-08-21 08:08 | Neurology Progress Note ---
Date of Encounter: 08/21/18 Time of Encounter: 08:06 Assessment and Plan (1) Retrobulbar neuritis of left eye Current Visit: Yes Status: Acute Patient continues to improve. The afferent pupillary defect on the left remains, however her vision is steadily improving. I believe that we will be able to discharge her after she receives the full 3000 mg of Solu-Medrol. MRI scans of the cervical and thoracic spine are yet pending. The outcome of these tests will help to dictate my different therapeutic options for treatment of multiple sclerosis. I would like to follow up with her my office after discharge. Subjective Interval history: The chart was reviewed, the patient was seen and examined. Patient was sleeping in bed and easily aroused to voice. She denies any new problems. She continues to feel that the vision in the left eye is improving. It is better today than it was yesterday. However she still has some blurring centrally. She denies any eye pain or headache today. Anticipate MRIs of the cervical and thoracic spine today. Anticipate that she can be discharged after the full 3000 mg of Solu-Medrol has been completed. Objective - Constitutional Vitals: Temp Pulse Resp BP Pulse Ox 97.9 F 60 18 120/72 96 08/21/18 07:42 08/21/18 07:42 08/21/18 07:42 08/21/18 07:42 08/21/18 07:42 Exam: General Examination: *CONSTITUTIONAL: normal *GENERAL APPEARANCE OF PATIENT appears healthy and well groomed *EYES: pupils equal, round, reactive to light and accommodation, conjunctiva clear without masses or ulcerations, fundi normal. *CARDIOVASCULAR no peripheral edema, distal temperature normal, dorsalis pedis pulses normal. Refer to vital signs Musculoskeletal: *GAIT AND STATION normal, with normal Romberg testing, no abnormalities such as broad base gait or spasticity *ASSESSMENT OF MUSCLE STRENGTH IN THE UPPER AND LOWER EXTREMITIES I do find mild weakness of the left upper extremity involving the deltoid, biceps, left triceps all at 4/5. 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 She has giveaway weakness of the right upper extremity due to the IV in the right antecubital fossa. She has normal bulk and tone of both upper extremities. She has normal strength bulk and tone of both lower extremities. *MUSCLE TONE IN THE UPPER AND LOWER EXTREMITIES normal. No abnormal movements, fasciculations or atrophy identified. Neurological: *ORIENTATION to time and place *RECURRENT AND REMOTE MEMORY intact *ATTENTION AND CONCENTRATION are normal *LANGUAGE FUNCTION no significant aphasia or dysarthia was noted. *FUND OF KNOWLEDGE aware of current events, past history, vocabulary *MENTAL attention span and concentration normal. *CN II there is a left afferent pupillary defect, the right pupil responds normally. Funduscopic exam is normal bilaterally. *CN III,IV, PERRLA extraocular eye movements were full, no nystagmus and no ptosis noted. *CN V shows normal sensation and jaw opens symmetrically. *CN VII shows normal facial movement symmetrically, upper and lower bilaterally. *CN VIII shows no significant hearing loss on examination in the office. *CN IX,,X palate elevated symmetrically and normal gag reflex was noted. *CN XI normal strength in the sternocleidomastoid muscles, symmetrical shoulder shrugging. *CN XII tongue protruded in the midline, with normal strength and movement. *SENSORY EXAMINATION pinprick sensation intact, and light touch(vibration sense). *REFLEXES: deep tendon reflexes were normal and symmetrical , grade 2/4 diffusely, no pathological reflexes were noted. *CEREBELLAR TESTING normal finger to nose, heel/knee/quach, and tandem walk. *PAIN LEVEL left eye pain has resolved. - VTE Reasons for not Prescribing Prophylaxis: Treatment not Indicated - Low risk for VTE Results - Laboratory Findings CBC and BMP: 08/20/18 03:34 08/20/18 03:34 Abnormal lab findings: Abnormal lab results RBC 5.58 M/mcL (3.82-4.97) H 08/20/18 03:34 MCV 73.5 fL (83.0-100.0) L 08/20/18 03:34 MCH 22.6 pg (28.0-33.3) L 08/20/18 03:34 MCHC 30.7 g/dL (31.6-35.5) L 08/20/18 03:34 RDW 15.1 % (11.5-14.5) H 08/20/18 03:34 Sodium 134 mEq/L (136-145) L 08/20/18 03:34 Carbon Dioxide 21 mEq/L (23-29) L 08/20/18 03:34 Glucose 196 mg/dL (70-105) H 08/20/18 03:34 AST 10 Units/L (13-39) L 08/20/18 03:34 Consult Discharge Plan - Plan Referrals: NONE,PCP [Primary Care Provider] -
--- NOTE | 2018-08-21 13:31 | Internal Med Progress Note ---
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 She started having loss of central vision in her left eye (donahue curtain) 8 days ago, which progressively worsened and ultimately involved whole of left eye to the extent that she no longer has even light perception. Pt was admitted in the hospital and placed her on monitor. Her Brain MRI showed left sided papilledema which is concenring for optic neuritis of left eye. Pt was started on high dose IV steroids Solumedrol. Pt stated her vision is better now. Denied any EVRNON. - Exam Vitals: Temp Pulse Resp BP Pulse Ox 97.9 F 82 18 138/76 97 08/21/18 07:42 08/21/18 11:29 08/21/18 11:29 08/21/18 11:29 08/21/18 11:29 Exam: Gen: Alert, awake, Oriented to time,place and person Chest: Diminished breath sounds B/L, No wheezing, No crackles, No rales Heart: S1S2+ RRR No murmurs Abd: Soft, NT, BS +, No organomegaly Ext: No edema, pulses are palpable, No calf tenderness Neuro : Benign findings Skin: No rash. - Assessment and Plan (1) Optic neuritis Current Visit: Yes Status: Acute Assessment and Plan: Cont high dose iV steroids Solumedrol 500mg BID x 2/3 days Symptoms are improving slowly Appreciate neurology recommendaitons Reviewed cervical and thoracic spine MRI - no acute abnormality noticed Her MRI of Brain findings are consistent with MS, will ask Neurology about further f/u plan. Continue symptomatic and supportive care - Time Spent with Patient Total time spent is greater than 50% in coordination of care (as documented) at patient's floor/unit and/or counseling patient: Internal Medicine: Result - Labs CBC & Chem 7: 08/20/18 03:34 08/20/18 03:34 - Impressions Impressions Thoracic Spine MRI 08/21/18 11:42 IMPRESSION: MRI cervical spine: No acute abnormality or abnormal enhancement in the cervical spine. No abnormal signal or enhancement in the cervical spinal cord. No significant degenerative disease, spinal canal or foraminal stenosis in the cervical spine. MRI thoracic spine: No acute abnormality or abnormal enhancement in the thoracic spine. No abnormal signal or enhancement in the thoracic spinal cord. No significant degenerative disease, spinal canal or foraminal stenosis in the thoracic spine. D/ / Ronald Wellington MD / Ronald Wellington MD Interpreting Provider: Ronald Wellington MD Cervical Spine MRI 08/21/18 11:45 IMPRESSION: MRI cervical spine: No acute abnormality or abnormal enhancement in the cervical spine. No abnormal signal or enhancement in the cervical spinal cord. No significant degenerative disease, spinal canal or foraminal stenosis in the cervical spine. MRI thoracic spine: No acute abnormality or abnormal enhancement in the thoracic spine. No abnormal signal or enhancement in the thoracic spinal cord. No significant degenerative disease, spinal canal or foraminal stenosis in the thoracic spine. D/ / Ronald Wellington MD / Ronald Wellington MD Interpreting Provider: Ronald Wellington MD - VTE Reasons for not Prescribing Prophylaxis: Treatment not Indicated - Low risk for VTE Consult Discharge Plan - Plan Referrals: Tyler Rowe DO [Partnered Physician] - Gina aWlker CNP [Advanced Practice Nurse] - 08/28/18 3:00 pm (This is a new patient appointment. You will receive a packet in the mail to fill out. Please bring this packet, a list of current medications, your insurance card, a nd a form of ID to your appointment. If you need to cancel the appointment, you must give the office a 24 hour notice. )
--- NOTE | 2018-08-22 09:25 | Neurology Progress Note ---
Date of Encounter: 08/22/18 Time of Encounter: 09:23 Assessment and Plan (1) Retrobulbar neuritis of left eye Current Visit: Yes Status: Acute Patient's left I visual abnormalities continue to improve hopefully she will continue to prove back to her normal baseline. The MRIs of the cervical and thoracic spine were unremarkable. Her neurologic examination other than the left afferent pupillary defect was normal. I feel that it is okay for her to be discharged today. I will however check a baseline vitamin D level and like to follow up with her in my office sometime next week to review different disease modifying therapies. He may discharge her at your discretion. Subjective Interval history: Chart was reviewed, patient was seen and examined. Patient is sitting up in bed with a visitor present. She has no new complaints. She feels that the vision in her left eye continues to improve although not back to baseline. She has no other neurologic complaints. She did have multiple questions regarding expectations. Objective - Constitutional Vitals: Temp Pulse Resp BP Pulse Ox 98.5 F 70 16 136/83 96 08/22/18 07:15 08/22/18 07:15 08/22/18 07:15 08/22/18 07:15 08/22/18 07:15 General Examination: *CONSTITUTIONAL: normal *GENERAL APPEARANCE OF PATIENT appears healthy and well groomed *EYES: pupils equal, round, reactive to light and accommodation, conjunctiva clear without masses or ulcerations, fundi normal. *CARDIOVASCULAR no peripheral edema, distal temperature normal, dorsalis pedis pulses normal. Refer to vital signs Musculoskeletal: *GAIT AND STATION normal, with normal Romberg testing, no abnormalities such as broad base gait or spasticity *ASSESSMENT OF MUSCLE STRENGTH IN THE UPPER AND LOWER EXTREMITIES I do fi nd mild weakness of the left upper extremity involving the deltoid, biceps, left triceps all at 4/5. 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 She has giveaway weakness of the right upper extremity due to the IV in the right antecubital fossa. She has normal bulk and tone of both upper extremities. She has normal strength bulk and tone of both lower extremities. *MUSCLE TONE IN THE UPPER AND LOWER EXTREMITIES normal. No abnormal movements, fasciculations or atrophy identified. Neurological: *ORIENTATION to time and place *RECURRENT AND REMOTE MEMORY intact *ATTENTION AND CONCENTRATION are normal *LANGUAGE FUNCTION no significant aphasia or dysarthia was noted. *FUND OF KNOWLEDGE aware of current events, past history, vocabulary *MENTAL attention span and concentration normal. *CN II there is a left afferent pupillary defect, the right pupil responds normally. Funduscopic exam is normal bilaterally. *CN III,IV, PERRLA extraocular eye movements were full, no nystagmus and no ptosis noted. *CN V shows normal sensation and jaw opens symmetrically. *CN VII shows normal facial movement symmetrically, upper and lower bilaterally. *CN VIII shows no significant hearing loss on examination in the office. *CN IX,,X palate elevated symmetrically and normal gag reflex was noted. *CN XI normal strength in the sternocleidomastoid muscles, symmetrical shoulder shrugging. *CN XII tongue protruded in the midline, with normal strength and movement. *SENSORY EXAMINATION pinprick sensation intact, and light touch(vibration sense). *REFLEXES: deep tendon reflexes were normal and symmetrical , grade 2/4 diffusely, no pathological reflexes were noted. *CEREBELLAR TESTING normal finger to nose, heel/knee/quach, and tandem walk. *PAIN LEVEL left eye pain has resolved. - VTE Reasons for not Prescribing Prophylaxis: Treatment not Indicated - Low risk for VTE Results - Laboratory Findings CBC and BMP: 08/20/18 03:34 08/20/18 03:34 Abnormal lab findings: Abnormal lab results RBC 5.58 M/mcL (3.82-4.97) H 08/20/18 03:34 MCV 73.5 fL (83.0-100.0) L 08/20/18 03:34 MCH 22.6 pg (28.0-33.3) L 08/20/18 03:34 MCHC 30.7 g/dL (31.6-35.5) L 08/20/18 03:34 RDW 15.1 % (11.5-14.5) H 08/20/18 03:34 Sodium 134 mEq/L (136-145) L 08/20/18 03:34 Carbon Dioxide 21 mEq/L (23-29) L 08/20/18 03:34 Glucose 196 mg/dL (70-105) H 08/20/18 03:34 AST 10 Units/L (13-39) L 08/20/18 03:34 Consult Discharge Plan - Plan Referrals: Tyler Rowe DO [Partnered Physician] - Gina Walker CNP [Advanced Practice Nurse] - 08/28/18 3:00 pm (This is a new patient appointment. You will receive a packet in the mail to fill out. Please bring this packet, a list of current medications, your insurance card, and a form of ID to your appointment. If you need to cancel the appointment, you must give the office a 24 hour notice. )
[2018-08-22 11:11] VITALS: BP 123/74
--- NOTE | 2018-08-22 12:15 | Discharge Summary ---
- NOTES TO OUTPATIENT PROVIDER Notes to Outpatient Provider: Follow up with neurologist Dr. Rowe in one week. Follow up with PCP in one week. Please quit smoking. Orders not resulted at time of discharge: Pending orders 08/22/18 10:40 25-oh vitamin D [Vitamin D 25 Hydroxy] Routine 08/23/18 13:05 POC Glucometer Test [POC] [facility] 08/24/18 13:05 POC Glucometer Test [POC] [facility] 08/25/18 13:05 POC Glucometer Test [POC] [facility] 08/26/18 13:05 POC Glucometer Test [POC] [facility] 08/27/18 13:05 POC Glucometer Test [POC] [facility] 08/28/18 13:05 POC Glucometer Test [POC] [facility] 08/29/18 13:05 POC Glucometer Test [POC] [facility] 08/30/18 13:05 POC Glucometer Test [POC] [facility] 08/31/18 13:05 POC Glucometer Test [POC] [facility] 09/01/18 13:05 POC Glucometer Test [POC] [facility] 09/02/18 13:05 POC Glucometer Test [POC] [facility] 09/03/18 13:05 POC Glucometer Test [POC] [facility] 09/04/18 13:05 POC Glucometer Test [POC] [facility] 09/05/18 13:05 POC Glucometer Test [POC] [facility] 09/06/18 13:05 POC Glucometer Test [POC] [facility] 09/07/18 13:05 POC Glucometer Test [POC] [facility] 09/08/18 13:05 POC Glucometer Test [POC] [facility] Date of Encounter: 08/22/18 Time of Encounter: 12:10 - Discharge Diagnosis (1) Optic neuritis Priority: Primary Status: Acute (2) Tobacco dependence Priority: Secondary Status: Acute Hospital course: 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 She started having loss of central vision in her left eye (donahue curtain) 8 days ago, which progressively worsened and ultimately involved whole of left eye to the extent that she no longer has even light perception. She was seen and evaluated by her local pharmacovigilance scientist who sent her to see Dr. Davide Waters a neuro-auto bumper straightener in [place]. She was seen by Dr. Jt loaiza for days or so ago. Apparently she was given information about optic neuritis, however she states no treatment was offered an MRI scan of the brain was not ordered. She became concerned when the visual changes in the left eye worsened and she was not able to see anything in the left eye other than a blurred patch in the center of her vision. Pt was admitted in the hospital and placed her on monitor. Her Brain MRI showed left sided papilledema which is concenring for optic neuritis of left eye. Pt was started on high dose IV steroids Solumedrol 1gm x 3 days. Pt stated her vision is better now. Denied any VERNON. Her Thoracic and Cervical spine MRI are unrem arkable. So will d/c the pt home today with tapering dose of Prednisone. - Time Spent with Patient Total time spent providing and/or coordinating discharge services: - Discharge Medications Prescriptions: Nicotine Patch [Nicoderm] 14 mg TD DAILY #30 patch.td24 predniSONE [PredniSONE] 40 mg PO DAILY #10 tablet Home Medications: Norethindrone [Rosa] 0.35 mg PO DAILY 08/21/18 [History] Nicotine Patch [Nicoderm] 14 mg TD DAILY #30 patch.td24 08/22/18 [Rx] predniSONE [PredniSONE] 40 mg PO DAILY #10 tablet 08/22/18 [Rx] Allergies/Adverse Reactions: Allergy/AdvReac Type Severity Reaction Status Date / Time penicillin V Allergy Itching Verified 08/21/18 09:35 Date of admission: 08/19/18 18:22 Primary care physician: PCP NONE Consults: 08/19/18 16:39 Consult to Neurology [CONS] Stat Consulting Provider: Neurology [facility] Reason for Consult: optic neuritis, concern for MS Time Notified: 16:39 Call Completed: Yes - Constitutional Vitals: Temp Pulse Resp BP Pulse Ox 98.0 F 56 97 123/74 96 08/22/18 11:10 08/22/18 11:10 08/22/18 11:10 08/22/18 11:10 08/22/18 07:15 General appearance: Present: A&O X 3, pleasant, no acute distress Exam: Gen: Alert, awake, Oriented to time,place and person HENT: Improving vision in Left eye.. She still has some visual loss. Chest: Diminished breath sounds B/L, No wheezing, No crackles, No rales Heart: S1S2+ RRR No murmurs Abd: Soft, NT, BS +, No organomegaly Ext: No edema, pulses are palpable, No calf tenderness Neuro : Benign findings Skin: No rash. - Patient Status Disposition: Home, Self-Care Condition: Good Overall status at discharge: patient is back to baseline - Discharge Instructions Follow Up With: Tyler Rowe DO [Partnered Physician] - Gina Walker CNP [Advanced Practice Nurse] - 08/28/18 3:00 pm (This is a new patient appointment. You will receive a packet in the mail to fill out. Please bring this packet, a list of current medications, your insurance card, and a form of ID to your appointment. If you need to cancel the appointment, you must give the office a 24 hour notice. ) - Diet and Activity Activity: increase activity as tolerated Diet: low salt diet - VTE Reasons for not Prescribing Prophylaxis: Treatment not Indicated - Low risk for VTE
== END 2018-08-22 14:30 | disposition home or self-care (01) | DRG 123 ==
LOC: 3BNU 14:21 → EMEROOARM 14:21 → SUATTDRO 18:22 → 3BNU 18:35
PROVIDERS: ADMIT Internal Medicine; ATTEND Family Medicine